=== PATIENT | male | born 2005 | race Caucasian/White ===

== ENCOUNTER 2023-06-26 15:59 | Emergency (ER) | payer OTHER ==
[~2023-06-26] VITALS: Ht 170.2 cm; Wt 63.5 kg
[2023-06-26 16:08] VITALS: BP 120/69
== END 2023-06-26 17:26 | disposition home or self-care (01) ==
LOC: ER 15:59
DX: S01.81XA Laceration without foreign body of other part of head, initial encounter (principal); W22.8XXA Striking against or struck by other objects, initial encounter; Z23 Encounter for immunization
CPT/HCPCS: 12015; 90471; 90714; 99282-25